=== PATIENT | male | born 1980 ===

== ENCOUNTER 2024-02-16 16:35 | Emergency (ER) | payer BC ==
[~2024-02-16] VITALS: Ht 165.1 cm; Wt 100.0 kg
[2024-02-16 16:39] VITALS: BP 148/93; TEMP 98.1
[2024-02-16] MEDS ORDERED: Ketorolac 15 MG/ML VIAL IM ONE (17:45)
[2024-02-16] MEDS ORDERED: diazePAM 5 MG TAB PO ONE (17:45)
[2024-02-16] MEDS ORDERED: FLEXERIL 1010 MG/TAB PO (22:43)
[2024-02-16 22:55] VITALS: PULSE 82
== END 2024-02-16 22:50 | disposition home or self-care (01) ==
LOC: COL.ER 16:35
DX: S30.0XXA Contusion of lower back and pelvis, initial encounter (principal); W01.0XXA Fall on same level from slipping, tripping and stumbling without subsequent striking against object, initial encounter; Y92.002 Bathroom of unspecified non-institutional (private) residence as the place of occurrence of the external cause
CPT/HCPCS: J1885